=== PATIENT | female | born 1990 | race Caucasian/White ===

== ENCOUNTER 2025-05-27 20:53 | Observation (INO) | payer MEDICAID ==
[2025-05-27 22:53] LABS: #Basophils 0.05 10x3/uL (0.0-0.2); #Eosinophils 0.05 10x3/uL (0.0-0.7); #Monocytes 0.54 10x3/uL (0.11-0.59); #Neutrophils 3.09 10x3/uL (1.40-6.50); %Basophils 0.8 % (0.0-1.0); %Eosinophils 0.8 % (0.0-10.0); %Lymphocytes 38.9 % (21.0-51.0); %Monocytes 8.8 % (0.0-10.0); %Neutrophils 50.2 % (42.0-75.0); Hematocrit 24.8 % (36.0-47.0); Hemoglobin 6.3 g/dL (12.0-16.0); Mean Corpuscular Hemoglobin 14.5 pg (27.0-31.0); Mean Corpuscular Volume 57.0 fL (78.0-98.0); Platelet Count 625 10x3/uL (130-400); Red Blood Cell (RBC) Count 4.35 mill/uL (4.20-5.40); White Blood Cell (WBC) Count 6.15 10x3/uL (4.8-10.8)
[2025-05-27 22:57] LABS: ALT (SGPT) 16 U/L (Less than 34); AST (SGOT) 19 U/L (11-34); Albumin 3.5 g/dL (3.1-4.5); Alkaline Phosphatase 135 U/L (40-110); Anion Gap 12 mmol/L (10-20); BUN (Urea Nitrogen) 8 mg/dL (7.0-18.7); Bilirubin, Total 0.5 mg/dL (0.3-1.2); Calc. Creatinine Clearance 0 mL/min (70-130); Calcium 8.7 mg/dL (7.8-10.44); Carbon Dioxide 23 mmol/L (22-29); Chloride 106 mmol/L (98-107); Globulin 2.9 g/dL (2.4-3.5); Glucose 93 mg/dL (70-105); Potassium 4.0 mmol/L (3.5-5.1); Sodium 137 mmol/L (136-145)
[2025-05-27 23:18] LABS: Anisocytosis SLIGHT = 6-15 cells HPF (0-5); Microcytosis SLIGHT = 6-15 cells HPF (0-5); Ovalocytes MODERATE= 6-15 cells HPF (0-1); Platelet Adequacy Comment Platelets Increased; Poikilocytosis SLIGHT = 6-15 cells HPF (0-5); Polychromasia SLIGHT = 2-3 cells HPF (0-2); Reflex for Review?? YES; Schistocytes SLIGHT = 2-5 cells HPF (0-1)
[2025-05-28 01:02] LABS: BHCG - Serum Negative (NEGATIVE); Pregs Control Background? CLEAR/WHITE (CLR/WHITE); Pregs Control Bar Appear? YES (CONTROL BAR)
[2025-05-28] MEDS ORDERED: Ondansetron PF 4 MG/2 ML Vial IVP PRN (03:20)
[2025-05-28] MEDS ORDERED: Calcium Carbonate 500 MG ChewTAB PO PRN (03:20)
[2025-05-28] MEDS ORDERED: Electrolyte Replacement Protocol 1 EACH FS PRN (03:30)
[2025-05-28 03:46] VITALS: BMI 29.3
[2025-05-28] MEDS: Sodium Ferric Gluconate 250 MG in Sodium Chloride 0.9% 250 ML 250 ML IVPB SCH (04:54)
[2025-05-28 09:15] LABS: ALT (SGPT) 14 U/L (Less than 34); AST (SGOT) 17 U/L (11-34); Albumin 2.9 g/dL (3.1-4.5); Alkaline Phosphatase 106 U/L (40-110); Anion Gap 10 mmol/L (10-20); BUN (Urea Nitrogen) 6 mg/dL (7.0-18.7); Bilirubin, Total 0.7 mg/dL (0.3-1.2); Calc. Creatinine Clearance 161 mL/min (70-130); Calcium 8.1 mg/dL (7.8-10.44); Carbon Dioxide 23 mmol/L (22-29); Chloride 110 mmol/L (98-107); Globulin 2.5 g/dL (2.4-3.5); Glucose 80 mg/dL (70-105); Hematocrit 25.3 % (36.0-47.0); Hemoglobin 6.6 g/dL (12.0-16.0); Iron 295 ug/dL (50-170); Iron Binding Capacity, Total 430 mcg/dL (265-497); Mean Corpuscular Hemoglobin 15.9 pg (27.0-31.0); Mean Corpuscular Volume 60.8 fL (78.0-98.0); Platelet Count 506 10x3/uL (130-400); Potassium 3.8 mmol/L (3.5-5.1); Red Blood Cell (RBC) Count 4.16 mill/uL (4.20-5.40); Sodium 139 mmol/L (136-145); White Blood Cell (WBC) Count 4.66 10x3/uL (4.8-10.8)
[2025-05-28 09:45] LABS: Microcytosis SLIGHT = 6-15 cells HPF (0-5); Nucleated RBC (Manual Ct) 1 % (0); Ovalocytes MODERATE= 6-15 cells HPF (0-1); Platelet Adequacy Comment Platelets Increased; Polychromasia MODERATE = 3-4 cells HPF (0-2)
[2025-05-28 13:01] LABS: Magnesium 2.0 mg/dL (1.6-2.6)
[2025-05-28] MEDS: Magnesium 2 GM/50 ML(in water) 2 GM in Premix 1 BAG IVPB SCH (13:11)
[2025-05-28] MEDS: Furosemide 40 MG (4 mL) VIAL SLOW IVP SCH (16:36)
[2025-05-28 18:13] LABS: Hematocrit 33.3 % (36.0-47.0); Hemoglobin 9.2 g/dL (12.0-16.0); Platelet Count 556 10x3/uL (130-400)
[2025-05-28] MEDS: Acetaminophen 325 MG TAB PO PRN (19:36)
[2025-05-29 06:09] LABS: Hematocrit 32.6 % (36.0-47.0); Hemoglobin 8.8 g/dL (12.0-16.0); Mean Corpuscular Hemoglobin 16.9 pg (27.0-31.0); Mean Corpuscular Volume 62.6 fL (78.0-98.0); Platelet Count 565 10x3/uL (130-400); Red Blood Cell (RBC) Count 5.21 mill/uL (4.20-5.40); White Blood Cell (WBC) Count 6.54 10x3/uL (4.8-10.8)
[2025-05-29 06:31] LABS: Anion Gap 14 mmol/L (10-20); BUN (Urea Nitrogen) 11 mg/dL (7.0-18.7); Calc. Creatinine Clearance 156 mL/min (70-130); Calcium 9.0 mg/dL (7.8-10.44); Carbon Dioxide 25 mmol/L (22-29); Chloride 105 mmol/L (98-107); Glucose 85 mg/dL (70-105); Magnesium 2.4 mg/dL (1.6-2.6); Potassium 4.0 mmol/L (3.5-5.1); Sodium 140 mmol/L (136-145)
[2025-05-29 07:38] LABS: Anisocytosis MODERATE=16-30 cells HPF (0-5); Microcytosis SLIGHT = 6-15 cells HPF (0-5); Platelet Adequacy Comment Platelets Normal; Polychromasia SLIGHT = 2-3 cells HPF (0-2); Smudge Cells 4.4 %
[2025-05-29] MEDS: Sodium Ferric Gluconate 250 MG in Sodium Chloride 0.9% 250 ML 250 ML IVPB SCH (08:31)
[2025-05-29 15:57] VITALS: BP 112/76; TEMP 97.6
== END 2025-05-29 18:20 | disposition home or self-care (01) ==
LOC: ERS 20:53 → 2NO 05-28 02:34
PROVIDERS: ADMIT Student in an Organized Health Care Education/Training Program; ATTEND Family Medicine
PROC: B24BZZZ Ultrasonography of Heart with Aorta (ICD-10-PCS; principal; 2025-05-29)
DX: D50.9 Iron deficiency anemia, unspecified (principal); I24.89 Other forms of acute ischemic heart disease; R79.89 Other specified abnormal findings of blood chemistry; Z88.1 Allergy status to other antibiotic agents; R60.0 Localized edema
CPT/HCPCS: 36415; 36430; 71045; 80048; 80053; 82728; 83540; 83550; 83735; 83880; 84484; 84703; 85025; 85046; 85060; 86850; 86900; 86901; 93005; 93306; 93970; 96374; 96375; 96376; G0378; J1940; J2916; J3475; J7050; P9016